=== PATIENT | male | born 1985 | race Two or more races ===

== ENCOUNTER 2019-09-26 17:43 | Emergency (ER) | payer SELFPAY ==
[~2019-09-26] VITALS: Ht 172.7 cm; Wt 82.0 kg
--- NOTE | 2019-09-26 19:16 | PHYS DOC ---
Past Medical History Past Medical History: No Pertinent History Past Surgical History: No Surgical History Smoking Status: Current Some Day Smoker Alcohol Use: Occasionally General Adult EDM: Chief Complaint: EYE PROBLEMS HPI: HPI: 34-year-old male presents to the emergency department complaints of right eye pain. Patient states he was daniela today, used the nail gun nail was discharged and subsequently ricocheted back into his right eye. Patient descri bes pain with opening his eye, he described blurry vision as well. He denies any leakage of fluid. Denies any headache. Patient has any chest pain, shortness breath, nausea, vomiting. Visual acuity assessed in the emergency department, see nursing notes. Light makes his pain worse, opening his eye makes his pain worse. Movements does not cause any pain. Review of Systems: Review of Systems: Constitutional: Denies fever or chills. [] Eyes: pain right eye after injury HENT: Denies nasal congestion or sore throat. [] Respiratory: Denies cough or shortness of breath. [] Cardiovascular: Denies chest pain or edema. [] GI: Denies abdominal pain, nausea, vomiting, bloody stools or diarrhea. [] : Denies dysuria. [] Musculoskeletal: Denies back pain or joint pain. [] Neurologic: Denies headache, focal weakness or sensory changes. [] Endocrine: Denies polyuria or polydipsia. [] Heart Score: Risk Factors: Risk Factors: DM, Current or recent (<one month) smoker, HTN, HLP, family history of CAD, obesity. Risk Scores: Score 0 - 3: 2.5% MACE over next 6 weeks - Discharge Home Score 4 - 6: 20.3% MACE over next 6 weeks - Admit for Clinical Observation Score 7 - 10: 72.7% MACE over next 6 weeks - Early Invasive Strategies Current Medications: Current Medications Medications (Trade) Dose Ordered Sig/Vazquez Start Time Stop Time Status Last Admin Dose Admin Fluorescein Sodium (Ful-Bettina) 1 strip 1X ONCE 09/26/19 19:15 09/26/19 19:16 UNV Tetracaine HCl (Tetracaine) 1 drop 1X ONCE 09/26/19 19:15 09/26/19 19:16 UNV Allergies: Allergies: Allergies Coded Allergies Type Severity Reaction Last Updated Verified No Known Drug Allergies 09/26/19 No Physical Exam: PE: Constitutional: Well developed, well nourished, no acute distress, non-toxic appearance. [] HENT: Normocephalic, atraumatic, bilateral external ears normal, oropharynx moist, no oral exudates, nose normal. [] Eyes: PERRLA, EOMI, conjunctiva irritated, flourescene/black light with evidence of corneal abrasion on exam, negative siedel's exam Cardiovascular:Heart rate regular rhythm, no murmur [] Lungs & Thorax: Bilateral breath sounds clear to auscultation [] Abdomen: Bowel sounds normal, soft, no tenderness, no masses, no pulsatile masses. [] Skin: Warm, dry, no erythema, no rash. [] Neurologic: Alert and oriented X 3, no focal deficits noted. [] Psychologic: Affect normal, judgement normal, mood normal. [] Current Patient Data: Vital Signs: Vital Signs Date Time Temp Pulse Resp B/P (MAP) Pulse Ox O2 Delivery O2 Flow Rate FiO2 09/26/19 18:45 98.9 89 17 150/90 (110) 99 Room Air 98.9 EKG: EKG: [] Radiology/Procedures: Radiology/Procedures: [] Course & Med Decision Making: Course & Med Decision Making Pertinent Labs and Imaging studies reviewed. (See chart for details) [] 34-year-old male presents to the emergency department complaints of right eye pain. Patient states he was daniela today, used the nail gun nail was discharged and subsequently ricocheted back into his right eye. Patient describes pain with opening his eye, he described blurry vision as well. He denies any leakage of fluid. Denies any headache. Patient has any chest pain, shortness breath, nausea, vomiting. Visual acuity assessed in the emergency department, see nursing notes. Light makes his pain worse, opening his eye makes his pain worse. Movements does not cause any pain. Dragon Disclaimer: Dragon Disclaimer: This electronic medical record was generated, in whole or in part, using a voice recognition dictation system. Departure Departure Impression: Primary Impression: Right corneal abrasion Disposition: HOME, SELF-CARE Condition: IMPROVED Referrals: NO PCP (PCP) Patient Instructions: Eye - Corneal Abrasion, [id number] Additional Instructions: Recommend follow up with Optho on Sunday, call [phone] Scripts Ketorolac Tromethamine (KETOROLAC TROMETHAMINE) 5 Ml Drops 1 DROP OD QID for itching, #5 ML 0 Refills Prov: KOKO SOTO MD 09/26/19 Sulfacetamide Sodium (BLEPH-10) 5 Ml Drops 2 DROP OD QID, #5 ML 0 Refills Prov: KOKO SOTO MD 09/26/19 Justicifation of Admission Dx: Justifications for Admission: Justification of Admission Dx: N/A KOKO SOTO MD Sep 26, 2019 19:16
[2019-09-26] MEDS ORDERED: SULF5DRO OD (19:21)
[2019-09-26] MEDS ORDERED: KETO5DRO24 OD (19:21)
[2019-09-26] MEDS ORDERED: FLUORESCEIN OPHTH TEST STRIP. OD ONE (19:30)
[2019-09-26] MEDS ORDERED: TETRACAINE 0.5% OPHTH SOLUTION 4ML BOTTLE. OD ONE (19:30)
[2019-09-26 19:36] VITALS: BP 163/91
== END 2019-09-26 19:41 | disposition home or self-care (01) ==
LOC: ER 17:43
DX: S05.01XA Injury of conjunctiva and corneal abrasion without foreign body, right eye, initial encounter (principal); F17.200 Nicotine dependence, unspecified, uncomplicated; X58.XXXA Exposure to other specified factors, initial encounter; Y93.89 Activity, other specified; Y92.89 Other specified places as the place of occurrence of the external cause; Y99.8 Other external cause status
CPT/HCPCS: 99283